=== PATIENT | male | born 1955 | race Caucasian/White ===

== ENCOUNTER 2017-02-21 18:15 | Inpatient (IN) | payer BC ==
[2017-02-21] VITALS (7 sets, daily range): BP systolic 111–136; BP diastolic 61–75; PULSE 74–95; RESP 16–18; TEMP 97.9–99; O2SAT 95–98
[~2017-02-21] VITALS: Ht 180.3 cm; Wt 80.0 kg
[2017-02-21] MEDS ORDERED: OMEGCAP PO (18:42)
[2017-02-21] MEDS ORDERED: SODIUM CHLOR 0.9% 1000 ML INJ 1,000 ML IV SCH (18:53)
[2017-02-21] MEDS ORDERED: ONDANSETRON HCL 4 MG/2 ML VIAL IVP ONE (19:00)
[2017-02-21] MEDS ORDERED: SODIUM CHLORIDE 0.9% FLUSH 10 ML FLUSH IV FLUSH PRN ×2 (19:00→22:00)
[2017-02-21] MEDS ORDERED: MORPHINE SULFATE 4 MG/ML INJ IV PUSH ONE (19:00)
--- NOTE | 2017-02-21 19:01 | PD ---
HPI Chief Complaint: Flank/Kidney Pain Time Seen by Provider: 18:53 Travel History International Travel<30 days: No Contact w/Intl Traveler<30days: No Traveled to known affect area: No History of Present Illness HPI The patient is a 61-year-old male who presents emergency department for abdominal pain. The patient is currently on vacation from [place]. The patient developed periumbilical abdominal pain last night which is progressively worsened. The patient has not had much of an appetite today, he had a few potato chips and a rum [place] Coke on the beach earlier today. Approximate 2 PM the patient's pain worse and is now localized to the right lower quadrant. He does complain of nausea but denies any vomiting. He does complain of mild anorexia. The only previous abdominal surgery was at the age of 7 after an injury to the stomach which she states was "sutured from the inside out ". He denies any history of biliary colic or pancreatitis. He denies any chronic medical problems, daily medications, or allergies to medications. The patient does not have a local primary physician. Symptoms are moderate, worse with palpation, and there are no current alleviating factors. PFSH Past Medical History Medical History: Denies Significant Hx Diminished Hearing: No Tetanus Vaccination: > 5 Years Past Surgical History Narrative Surgical Abdominal surgery at the age of 7 after an injury where he states it was sutured from the inside out. Social History Alcohol Use: Yes (mixed drinks, occasionally; 1 rum/coke today (02/21/17)) Tobacco Use: No (quit 40 years ago) Substance Use: No Allergies-Medications (Allergen,Severity, Reaction): Coded Allergies: No Known Allergies (Unverified , 02/21/17) Reported Meds & Prescriptions Reported Meds & Active Scripts Active Reported [place]-3 Fish Oil/Vitamin (Fish Oil-Cholecalciferol) 1,000-1,000 Mg Cap 1 Cap PO DAILY Review of Systems Except as stated in HPI: all other systems reviewed are Neg General / Constitutional: No: Fever Cardiovascular: No: Chest Pain or Discomfort Respiratory: No: Shortness of Breath Gastrointestinal: Positive: Nausea, Abdominal Pain, No: Vomiting, Diarrhea Genitourinary: No: Dysuria, Hematuria Musculoskeletal: No: Myalgias Skin: No Rash Physical Exam Narrative GENERAL: Awake, alert, pleasant 61-year-old male who appears his stated age and is in no acute respiratory distress. SKIN: Focused skin assessment warm/dry. HEAD: Atraumatic. Normocephalic. EYES: No injection or drainage. ENT: No nasal bleeding or discharge. Mucous membranes pink and moist. NECK: Trachea midline. No JVD. CARDIOVASCULAR: Regular rate and rhythm. No murmur appreciated. RESPIRATORY: No accessory muscle use. Clear to auscultation. Breath sounds equal bilaterally. GASTROINTESTINAL: Abdomen soft, tender to palpation right lower quadrant. Positive McBurney's. Back: No CVA tenderness. MUSCULOSKELETAL: No obvious deformities. No clubbing. No cyanosis. No edema. NEUROLOGICAL: Awake and alert. No obvious cranial nerve deficits. Motor grossly within normal limits. Normal speech. PSYCHIATRIC: Appropriate mood and affect; insight and judgment normal. Data Data Last Documented VS Vital Signs Date Time Temp Pulse Resp B/P Pulse Ox O2 Delivery O2 Flow Rate FiO2 02/21/17 18:23 99.0 88 16 136/75 98 Orders Complete Blood Count With Diff (02/21/17 18:53) Comprehensive Metabolic Panel (02/21/17 18:53) Lipase (02/21/17 18:53) Urinalysis - C+S If Indicated (02/21/17 18:53) Ct Abd/Pel W Iv Contrast(Rout) (02/21/17 18:53) Iv Access Insert/Monitor (02/21/17 18:53) Ecg Monitoring (02/21/17 18:53) Oximetry (02/21/17 18:53) Morphine Inj (Morphine Inj) (02/21/17 19:00) Ondansetron Inj (Zofran Inj) (02/21/17 19:00) Sodium Chlor 0.9% 1000 Ml Inj (Ns 1000 M (02/21/17 18:53) Sodium Chloride 0.9% Flush (Ns Flush) (02/21/17 19:00) MDM Medical Decision Making Medical Screen Exam Complete: Yes Emergency Medical Condition: Yes Medical Record Reviewed: Yes Differential Diagnosis Differential diagnoses includes appendicitis, nephrolithiasis, pyelonephritis, diverticulitis, atypical cholecystitis, enteritis, dehydration. Narrative Course IV was established, labs are drawn and sent, and the patient was placed on cardiac telemetry monitoring and continuous pulse oximetry monitoring. The patient was administered morphine, Zofran, and IV fluids. The patient will be kept nothing by mouth. CT of the abdomen and pelvis was ordered to rule out appendicitis. The patient was signed out to the oncoming physician at 7 PM with labs and CT of the abdomen/pelvis pending. Condition: Stable Kalia Urban MD Feb 21, 2017 19:00
--- NOTE | 2017-02-21 19:07 | PD ---
Physical Exam Date Seen by Provider: Feb 21, 2017 Time Seen by Provider: 19:06 Narrative Accepted in transfer from Dr. Urban GENERAL: Well-developed well-nourished male in no acute distress appears to be in discomfort no respiratory distress GASTROINTESTINAL: Abdomen soft, localized tenderness right lower quadrant with voluntary guarding no rebound, nondistended. Right of umbilicus well healed 7 cm linear scar. Data Data Last Documented VS Vital Signs Date Time Temp Pulse Resp B/P Pulse Ox O2 Delivery O2 Flow Rate FiO2 02/21/17 20:24 92 18 119/64 96 Room Air 02/21/17 20:02 97.9 Orders Complete Blood Count With Diff (02/21/17 18:53) Comprehensive Metabolic Panel (02/21/17 18:53) Lipase (02/21/17 18:53) Urinalysis - C+S If Indicated (02/21/17 18:53) Ct Abd/Pel W Iv Contrast(Rout) (02/21/17 18:53) Iv Access Insert/Monitor (02/21/17 18:53) Ecg Monitoring (02/21/17 18:53) Oximetry (02/21/17 18:53) Morphine Inj (Morphine Inj) (02/21/17 19:00) Ondansetron Inj (Zofran Inj) (02/21/17 19:00) Sodium Chlor 0.9% 1000 Ml Inj (Ns 1000 M (02/21/17 18:53) Sodium Chloride 0.9% Flush (Ns Flush) (02/21/17 19:00) Oral Contrast - Adult (02/21/17 ) Diatrizoate Liq ( Gastroview Liq) (02/21/17 19:26) Iohexol 350 Inj (Omnipaque 350 Inj) (02/21/17 20:50) Piperacil-Tazo 3.375 Gm Premix (Zosyn 3. (02/21/17 21:30) NPO (02/21/17 21:17) Labs Laboratory Tests Test 02/21/17 02/21/17 19:05 20:15 White Blood Count 7.8 TH/MM3 Red Blood Count 4.64 MIL/MM3 Hemoglobin 14.9 GM/DL Hematocrit 44.1 % Mean Corpuscular Volume 94.9 FL Mean Corpuscular Hemoglobin 32.0 PG Mean Corpuscular Hemoglobin 33.7 % Concent Red Cell Distribution Width 12.0 % Platelet Count 161 TH/MM3 Mean Platelet Volume 8.8 FL Neutrophils (%) (Auto) 84.7 % Lymphocytes (%) (Auto) 9.5 % Monocytes (%) (Auto) 5.3 % Eosinophils (%) (Auto) 0.1 % Basophils (%) (Auto) 0.4 % Neutrophils # (Auto) 6.7 TH/MM3 Lymphocytes # (Auto) 0.7 TH/MM3 Monocytes # (Auto) 0.4 TH/MM3 Eosinophils # (Auto) 0.0 TH/MM3 Basophils # (Auto) 0.0 TH/MM3 CBC Comment DIFF FINAL Differential Comment Sodium Level 143 MEQ/L Potassium Level 3.7 MEQ/L Chloride Level 105 MEQ/L Carbon Dioxide Level 26.3 MEQ/L Anion Gap 12 MEQ/L Blood Urea Nitrogen 11 MG/DL Creatinine 1.00 MG/DL Estimat Glomerular Filtration 76 ML/MIN Rate Random Glucose 98 MG/DL Calcium Level 9.1 MG/DL Total Bilirubin 1.1 MG/DL Aspartate Amino Transf 21 U/L (AST/SGOT) Alanine Aminotransferase 31 U/L (ALT/SGPT) Alkaline Phosphatase 60 U/L Total Protein 7.7 GM/DL Albumin 4.0 GM/DL Lipase 97 U/L Urine Color YELLOW Urine Turbidity CLEAR Urine pH 5.5 Urine Specific [place] 1.016 Urine Protein NEG mg/dL Urine Glucose (UA) NEG mg/dL Urine Ketones NEG mg/dL Urine Occult Blood MOD Urine Nitrite NEG Urine Bilirubin NEG Urine Leukocyte Esterase NEG Urine RBC 4-9 /hpf Urine WBC 0-2 /hpf Urine Squamous Epithelial 0-5 /hpf Cells Urine Mucus OCC /lpf Microscopic Urinalysis Comment CULT NOT INDICATED [facility] Medical Record Reviewed: Yes Supervised Visit with MICHAEL: No Interpretation(s) Last Impressions Abdomen/Pelvis CT 02/21/17 8997 Signed Impressions: Service Date/Time: Tuesday, February 21, 2017 20:32 - CONCLUSION: 1. Acute appendicitis with approximately 5 mm appendicolith present. No abscess, obstruction or free air. Trace free fluid in the pelvis. 2. Fatty liver. 3. Nonobstructing 3 mm calculus lower pole left kidney Aaron Lange MD CBC & BMP Diagram 02/21/17 19:05 Vital Signs Date Time Temp Pulse Resp B/P Pulse Ox O2 Delivery O2 Flow Rate FiO2 4/16/17 20:24 92 18 119/64 96 Room Air 02/21/17 20:02 97.9 02/21/17 19:50 18 02/21/17 19:22 84 18 02/21/17 19:22 18 96 Room Air 02/21/17 19:22 82 18 128/73 96 Room Air 02/21/17 18:23 99.0 88 16 136/75 98 Differential Diagnosis Accepted in transfer from Dr. Urban please refer to his dictation Narrative Course Accepted in transfer from Dr. Urban for follow-up of pending labs and imaging and disposition with anticipated diagnosis of appendicitis; patient has just been ordered to receive IV fluid bolus of normal saline, morphine sulfate, and Zofran. @21:[address] abdomen and pelvis with contrast resulted and consistent with acute appendicitis without abscess or perforation identified; patient administered Zosyn and call placed to general surgery. Physician Communication Physician Communication call placed to general surgeon Dr Crenshaw @ 21:[address] Crenshaw --- admit OBS to his service to [facility], npo to Dr Crenshaw --- plan appendectomy 6 am Diagnosis Primary Impression: Acute appendicitis Condition: Stable Pily Sigala MD Feb 21, 2017 19:07
[2017-02-21] MEDS ORDERED: DIATRIZOATE MEGLUM/DIATRIZOATE SOD 9 ML CUP ONE (19:26)
[2017-02-21 20:01] LABS: AUTOMATED NEUTROPHIL # 6.7 TH/MM3 (1.8-7.7); BASOPHIL % 0.4 % (0.0-2.0); EOSINOPHIL % 0.1 % (0.0-4.0); HEMATOCRIT 44.1 % (39.0-51.0); LYMPH % 9.5 % (9.0-44.0); LYMPHOCYTE # 0.7 TH/MM3 (1.0-4.8); MEAN CELL VOLUME 94.9 FL (80.0-100.0); MEAN CORPUSCULAR HGB CONC 33.7 % (32.0-36.0); MONO % 5.3 % (0.0-8.0); NEUT % 84.7 % (16.0-70.0); PLATELET COUNT 161 TH/MM3 (150-450); RED BLOOD COUNT 4.64 MIL/MM3 (4.50-5.90); WHITE BLOOD COUNT 7.8 TH/MM3 (4.0-11.0)
[2017-02-21 20:04] LABS: CHLORIDE 105 MEQ/L (98-107); POTASSIUM 3.7 MEQ/L (3.5-5.1); SODIUM (NA) 143 MEQ/L (136-145)
[2017-02-21 20:05] LABS: HEMO FLAGS DIFF FINAL
[2017-02-21 20:08] LABS: ANION GAP 12 MEQ/L (5-15); BICARBONATE 26.3 MEQ/L (21.0-32.0); BLOOD UREA NITROGEN 11 MG/DL (7-18)
[2017-02-21 20:10] LABS: ALT (GPT) 31 U/L (12-78); AST (GOT) 21 U/L (15-37)
[2017-02-21 20:11] LABS: GLOMERULAR FILTRATION RATE 76 ML/MIN (>89)
[2017-02-21 20:12] LABS: TOTAL BILIRUBIN ADULT 1.1 MG/DL (0.2-1.0)
[2017-02-21 20:13] LABS: ALKALINE PHOSPHATASE 60 U/L (45-117)
[2017-02-21] MEDS ORDERED: IOHEXOL 350 MG/ML 10 ML VIAL (for RAD DIAG) IV ONE (20:50)
[2017-02-21 20:54] LABS: GLUCOSE,URINE NEG (NEG); KETONE, URINE NEG (NEG); NITRITE,URINE NEG (NEG); PH, URINE 5.5 (5.0-8.5)
[2017-02-21 20:57] LABS: BLOOD, URINE MOD (NEG)
[2017-02-21 21:03] LABS: URINE COLOR YELLOW (YELLW/STRAW)
--- NOTE | 2017-02-21 21:03 | RADHPO ---
EXAM DATE/TIME: 02/21/2017 20:32 [place] COMPARISON: No previous studies available for comparison. INDICATIONS : Right lower quadrant and flank pain. IV CONTRAST: 100 cc Omnipaque 350 (iohexol) IV ORAL CONTRAST: Prescribed oral contrast ingested. RADIATION DOSE: 18.16 CTDIvol (mGy) MEDICAL HISTORY : None SURGICAL HISTORY : None. ENCOUNTER: Initial ACUITY: 1 day PAIN SCALE: 6/10 LOCATION: Right lower quadrant TECHNIQUE: Volumetric scanning of the abdomen and pelvis was performed. Using automated exposure control and ad justment of the mA and/or kV according to patient size, radiation dose was kept as low as reasonably achievable to obtain optimal diagnostic quality images. FINDINGS: Lung bases are clear. There is mild fatty liver. Spleen, adrenals, pancreas unremarkable. Nonobstruct ing 3 mm calculus lower pole left kidney. Right kidney unremarkable. In the right lower quadrant the appendix measures about 1 cm in diameter and there is periappendiceal inflammatory changes and an approximately 5 mm appendicolith. Findings are characteristic of acute a ppendicitis. Trace free fluid in the pelvis. No free air. No bowel obstruction. No abscess. CONCLUSION: 1. Acute appendicitis with approximately 5 mm appendicolith present. No abscess, obstruction or free air. Trace free fluid in the pelvis. 2. Fatty liver. 3. Nonobstructing 3 mm calculus lower pole left kidney Aaron Lange MD on February 21, 2017 at 20:56 Board Certified Radiologist. This report was verified electronically.
[2017-02-21 21:04] LABS: MUCUS URINE OCC /lpf (OCC)
[2017-02-21 21:05] LABS: COMMENT (UR) CULT NOT INDICATED; CULTURE IF INDICATED CULT NOT INDICATED; SQUAMOUS EPITHELIAL CELL URINE 0-5 /hpf (0-5); WBC, URINE 0-2 /hpf (0-5)
[2017-02-21] MEDS ORDERED: PIPERACIL-TAZO 3.375 GM PREMIX 50 ML IV ONE (21:30)
[2017-02-21] MEDS ORDERED: SODIUM CHLORIDE 0.9% FLUSH 10 ML FLUSH IVF PRN (21:45)
[2017-02-21] MEDS ORDERED: ONDANSETRON HCL 4 MG/2 ML VIAL IV PRN (22:00)
[2017-02-21] MEDS ORDERED: HYDROmorphone HCL PF 1 MG/ML VIAL IV PRN (22:00)
[2017-02-21] MEDS: D5-1/2 NS + KCL 20 MEQ INJ 1,000 ML IV SCH (22:19)
[2017-02-22 01:00] VITALS: BP 112/58; PULSE 77; RESP 18; TEMP 97; O2SAT 96
[2017-02-22 01:32] VITALS: BP 112/58; PULSE 77; RESP 18; TEMP 97; O2SAT 96
[2017-02-22] MEDS: PIPERACIL-TAZO 3.375 GM PREMIX 50 ML IV SCH ×3 (03:41→17:03)
[2017-02-22 04:00] VITALS: BP_SYST 100; BP_SYST 143; BP_DIAS 60; BP_DIAS 89; PULSE 100; PULSE 70; RESP 20; TEMP 97; TEMP 97.1; O2SAT 97
[2017-02-22] MEDS ORDERED: ACETAMINOPHEN 1000 MG/100 ML VIAL IV ONE (05:02)
[2017-02-22] MEDS ORDERED: DEXAMETHASONE SOD PHOS 4 MG/ML VIAL ONE (05:02)
[2017-02-22] MEDS ORDERED: SUGAMMADEX SODIUM 200 MG/2 ML VIAL IV PUSH ONE ×2 (05:02)
[2017-02-22] MEDS ORDERED: fentaNYL CITRATE 250 MCG/5 ML AMP ONE (05:02)
[2017-02-22] MEDS ORDERED: FAMOTIDINE 20 MG/2 ML VIAL ONE (05:04)
[2017-02-22] MEDS ORDERED: BUPIVACAINE/EPINEPHRINE 0.25% PF 30 ML VIAL ONE (05:08)
--- NOTE | 2017-02-22 05:39 | HHI.HP ---
HPI Service General Surgery Primary Care Physician Non-Staff Admission Diagnosis acute appendicitis Chief Complaint: Abdominal pain History of Present Illness This 61 yo M developed central abdominal pain and discomfort about 36 hrs ago, which worsened and became localized to the RLQ. The pain persisted and he presented to the ED. He has had anorexia and nausea. He had a laparotomy as a child for a penetrating trauma to the abdomen. CT a/p was performed revealing acute appendicitis. Review of Systems Constitutional: DENIES: Fever, Chills Eyes: DENIES: Eye inflammation, Eye pain Respiratory: DENIES: Cough, Wheezing Cardiovascular: DENIES: Chest pain, Palpitations Gastrointestinal: COMPLAINS OF: Abdominal pain, Nausea, Anorexia Integumentary: DENIES: Pruritus, Rash Neurologic: DENIES: Localized weakness, Seizures Past Family Social History Past Medical History None Past Surgical History ex lap for penetrating trauma as a child Reported Medications Reported Meds & Active Scripts Active Reported [place]-3 Fish Oil/Vitamin (Fish Oil-Cholecalciferol) 1,000-1,000 Mg Cap 1 Cap PO DAILY Allergies: Coded Allergies: No Known Allergies (Unverified , 02/21/17) Active Ordered Medications Current Medications Medications (Trade) Dose Ordered Sig/Elizabeth Route Start Time Stop Time Status Last Admin (NS Flush) 2 ml UNSCH PRN IV FLUSH 02/21/17 22:00 02/22/17 03:37 Sodium Chloride 2 ml 2 ml BID IV FLUSH 02/22/17 09:00 (Zosyn 3.375 Gm Premix) 50 ml @ 100 mls/hr Q6H IV 02/22/17 04:00 02/22/17 03:41 (Dilaudid Pf Inj) 1 mg Q3H PRN IV 02/21/17 22:00 02/22/17 03:37 Ondansetron HCl 4 mg 4 mg Q6H PRN IV 02/21/17 22:00 (D5-1/2 NS + KCl 20 Meq Inj) 1,000 ml @ 100 mls/hr Q10H IV 02/21/17 21:46 02/21/17 22:19 Family History noncontributory Social History No tobacco use, occ ETOH. On vacation from [place] with his fiance. Physical Exam Vital Signs Vital Signs Date Time Temp Pulse Resp B/P Pulse Ox O2 Delivery O2 Flow Rate FiO2 02/22/17 04:00 97.1 70 20 100/60 97 02/22/17 01:32 97.0 77 18 112/58 96 02/21/17 23:56 18 96 02/21/17 23:33 74 18 02/21/17 23:33 74 18 111/61 96 Room Air 02/21/17 23:00 95 21 02/21/17 21:37 95 18 02/21/17 21:37 95 18 126/61 96 Room Air 02/21/17 20:24 92 18 119/64 96 Room Air 02/21/17 20:02 97.9 02/21/17 19:50 18 02/21/17 19:22 84 18 02/21/17 19:22 18 96 Room Air 02/21/17 19:22 82 18 128/73 96 Room Air 02/21/17 18:23 99.0 88 16 136/75 98 Physical Exam Gen: NAD Eyes: PERRLA CV: RRR Pulm: nonlabored breathing, CTAB, no wheezing or rhonchi Abd: well healed mini laparotomy in midline. + rebound RLQ, - rovsing's sign, otherwise nontender Ext: no cyanosis or edema Skin: warm, dry, nonjaundiced Laboratory Laboratory Tests Test 02/21/17 02/21/17 19:05 20:15 White Blood Count 7.8 Red Blood Count 4.64 Hemoglobin 14.9 Hematocrit 44.1 Mean Corpuscular Volume 94.9 Mean Corpuscular Hemoglobin 32.0 Mean Corpuscular Hemoglobin 33.7 Concent Red Cell Distribution Width 12.0 Platelet Count 161 Mean Platelet Volume 8.8 Neutrophils (%) (Auto) 84.7 Lymphocytes (%) (Auto) 9.5 Monocytes (%) (Auto) 5.3 Eosinophils (%) (Auto) 0.1 Basophils (%) (Auto) 0.4 Neutrophils # (Auto) 6.7 Lymphocytes # (Auto) 0.7 Monocytes # (Auto) 0.4 Eosinophils # (Auto) 0.0 Basophils # (Auto) 0.0 CBC Comment DIFF FINAL Differential Comment Sodium Level 143 Potassium Level 3.7 Chloride Level 105 Carbon Dioxide Level 26.3 Anion Gap 12 Blood Urea Nitrogen 11 Creatinine 1.00 Estimat Glomerular Filtration 76 Rate Random Glucose 98 Calcium Level 9.1 Total Bilirubin 1.1 Aspartate Amino Transf 21 (AST/SGOT) Alanine Aminotransferase 31 (ALT/SGPT) Alkaline Phosphatase 60 Total Protein 7.7 Albumin 4.0 Lipase 97 Urine Color YELLOW Urine Turbidity CLEAR Urine pH 5.5 Urine Specific [place] 1.016 Urine Protein NEG Urine Glucose (UA) NEG Urine Ketones NEG Urine Occult Blood MOD Urine Nitrite NEG Urine Bilirubin NEG Urine Leukocyte Esterase NEG Urine RBC 4-9 Urine WBC 0-2 Urine Squamous Epithelial 0-5 Cells Urine Mucus OCC Microscopic Urinalysis Comment CULT NOT INDICATED Result Diagram: 02/21/17190402/21/171904 Imaging Last Impressions Abdomen/Pelvis CT 02/21/171852 Signed Impressions: Service Date/Time: Tuesday, February 21, 2017 20:32 - CONCLUSION: 1. Acute appendicitis with approximately 5 mm appendicolith present. No abscess, obstruction or free air. Trace free fluid in the pelvis. 2. Fatty liver. 3. Nonobstructing 3 mm calculus lower pole left kidney Aaron Lange MD Assessment and Plan Assessment and Plan 61 yo M with h/o laparotomy as a child presents with evaluation consistent with acute appendicitis. I recommend to proceed with laparoscopic, possible open, appendectomy. Discussed details, risks, and benefits of appendectomy with the patient and he desires to proceed. Agusto Crenshaw MD Feb 22, 2017 05:39
[2017-02-22] MEDS: D5-1/2 NS + KCL 20 MEQ INJ 1,000 ML IV SCH (06:30)
[2017-02-22] MEDS ORDERED: Post-op Orders (for Pharmacy) MISC XX ONE (06:58)
[2017-02-22] MEDS ORDERED: DO NOT ADM ANY ANTICOAGULANT DRUGS PRN (06:59)
[2017-02-22] MEDS ORDERED: MORPHINE SULFATE 4 MG/ML INJ IV PRN (07:00)
[2017-02-22] MEDS ORDERED: NALOXONE HCL 0.4 MG/ML AMP IV PRN (07:00)
[2017-02-22] MEDS ORDERED: ONDANSETRON HCL 4 MG/2 ML VIAL IV PRN (07:00)
[2017-02-22] MEDS ORDERED: diphenhydrAMINE HCL 25 MG CAP PO PRN (07:00)
[2017-02-22] MEDS ORDERED: ACETAMINOPHEN/HYDROcodone 325 MG/5 MG TAB PO PRN (07:00)
[2017-02-22] MEDS ORDERED: SODIUM CHLORIDE 0.9% FLUSH 10 ML FLUSH IV FLUSH PRN (07:00)
[2017-02-22] MEDS ORDERED: ACETAMINOPHEN/HYDROcodone 325 MG/10 MG TAB PO PRN (07:00)
--- NOTE | 2017-02-22 07:43 | MP ---
cc: TRAM GOMEZ MD DATE OF SURGERY: 02/22/2017 PREOPERATIVE DIAGNOSIS Acute appendicitis. POSTOPERATIVE DIAGNOSIS Acute appendicitis with perforation. SURGERY Laparoscopic appendectomy. SURGEON Tram Gomez [employer] BRY Hansen ANESTHESIA General endotracheal. COMPLICATIONS None apparent. ESTIMATED BLOOD LOSS 10 cc. OPERATIVE FINDINGS The patient had generalized purulent peritonitis. The appendix was inflamed and slightly gangrenous. The abdomen was copiously irrigated with four liters of warm normal saline until there was only clear fluid remaining. PROCEDURE IN DETAIL The patient was taken to the operating room and placed in a supine position. General endotracheal anesthesia was induced. The abdomen was prepped and draped in the usual sterile fashion and a surgical timeout was performed to verify correct patient, procedure and site. In the left lower abdomen a 5 mm incision was made after infiltration with local anesthetic and a 5 mm port placed under direct laparoscopic visualization. The abdomen was insufflated to 15 mmHg with CO2 gas which the patient tolerated well. He was placed in reverse Trendelenburg position and turned to the left. Upon placement of the camera into the abdomen the patient was noted to have generalized purulent peritonitis. He also had adhesions in the midline at the umbilicus of omentum and small bowel from previous laparotomy as a child. The adhesions were not taken down. Next, a 5 mm port was placed just to the right of the midline in the right mid abdomen and a 12 mm port in the suprapubic area. Careful blunt dissection was performed in the right lower quadrant as there were acute adhesions and inflammation between loops of small bowel with some pus in between the loops of bowel. The appendix was carefully dissected free from surrounding inflammatory tissue, was elevated and the mesoappendix taken down with the Harmonic scalpel until the base was clearly seen entering the cecum. At this point two #1 PDS Endoloops were placed at the base of the appendix and it was transected and removed from the abdomen using an EndoCatch bag. The Endoloops were in place with no leakage and there was no bleeding. All quadrants of the abdomen including the pelvis were copiously irrigated with four liters of warm normal saline until the fluid was clear. The purulent fluid was throughout the abdomen prior to irrigation. At this point the trocars were removed and the abdomen allowed to desufflate. The 12 mm fascial incision was closed with 0 Vicryl suture. The skin was closed with subcuticular 4-0 Monocryl and Dermabond. The patient tolerated the procedure well, was extubated and taken to PACU in stable condition. MD JOAN Wilks/FELICIA /7:05 AM /8:26 AM
[2017-02-22] MEDS ORDERED: *ONDANSETRON 4 MG VIAL PERIprocedural Use ONLY ONE (07:46)
[2017-02-22] MEDS ORDERED: SCOPOLAMINE 1.5 MG PATCH ONE (08:27)
[2017-02-22] MEDS ORDERED: *diphenhydrAMINE HCL 50 MG/ML VIAL PERIprocedural Use ONLY ONE (08:30)
[2017-02-22] MEDS: metroNIDAZOLE 500 MG INJ 100 ML IV SCH ×3 (09:00→21:54)
[2017-02-22] MEDS ORDERED: SODIUM CHLORIDE 0.9% FLUSH 10 ML FLUSH IV FLUSH SCH ×2 (09:00)
[2017-02-22] MEDS ORDERED: SCOPOLAMINE 1.5 MG PATCH T-DERMAL ONE (09:00)
[2017-02-22] MEDS ORDERED: diphenhydrAMINE HCL 50 MG/ML VIAL IV ONE (09:00)
[2017-02-22] MEDS: LACTATED RINGER'S 1000 ML INJ 1,000 ML IV SCH ×2 (09:00→21:55)
[2017-02-22] MEDS: SODIUM CHLORIDE 0.9% FLUSH 10 ML FLUSH IV FLUSH SCH ×2 (09:00→21:00)
[2017-02-22] MEDS ORDERED: PROPOFOL 200 MG/20 ML AMP IV ONE (09:51)
[2017-02-22] MEDS ORDERED: ePHEDrine/NS 25 MG/5 ML SYR IV ONE (09:51)
[2017-02-22] MEDS ORDERED: PHENYLEPH/NS 1000 MCG/10 ML SYR IV ONE (09:52)
[2017-02-22] MEDS ORDERED: ONDANSETRON HCL 4 MG/2 ML VIAL IV PUSH ONE (09:52)
[2017-02-22] MEDS: METOCLOPRAMIDE HCL 10 MG/2 ML VIAL IV SCH ×3 (10:45→21:55)
[2017-02-22] MEDS: PANTOPRAZOLE SODIUM 40 MG VIAL IV SCH (10:45)
[2017-02-22] MEDS: LEVOFLOXACIN 750 MG PREMIX INJ 150 ML IV SCH (11:03)
--- NOTE | 2017-02-22 11:25 | EKG ---
Date Performed: 02/22/2017 Time Performed: 04:48:38 PTAGE: 61 years EKG: Sinus rhythm POSSIBLE LEFT ATRIAL ENLARGEMENT RIGHT BUNDLE BRANCH BLOCK LEFT ANTERIOR FASCICULAR BLOCK POSSIBLE S EPTAL MYOCARDIAL INFARCTION ABNORMAL ECG INTERPRETATION BASED ON A DEFAULT AGE OF 39 YEARS NO PREVIOUS TRACING DOCTOR: Phillip Kong Interpretating Date/Time 02/22/2017 11:24:44
[2017-02-22 16:00] VITALS: BP 97/58; PULSE 55; RESP 18; TEMP 96.3; O2SAT 95
[2017-02-22 20:00] VITALS: BP 129/63; PULSE 63; RESP 20; TEMP 96.6; O2SAT 97
[2017-02-22 21:53] VITALS: O2SAT 97
[2017-02-23] VITALS (7 sets, daily range): BP systolic 101–131; BP diastolic 55–64; PULSE 54–60; RESP 16–18; TEMP 95.8–97.5; O2SAT 95–98
[2017-02-23] MEDS: PIPERACIL-TAZO 3.375 GM PREMIX 50 ML IV SCH ×3 (00:08→08:58)
[2017-02-23] MEDS: metroNIDAZOLE 500 MG INJ 100 ML IV SCH ×4 (02:18→20:21)
[2017-02-23] MEDS: METOCLOPRAMIDE HCL 10 MG/2 ML VIAL IV SCH ×4 (02:18→20:21)
[2017-02-23] MEDS: LACTATED RINGER'S 1000 ML INJ 1,000 ML IV SCH ×2 (05:06→15:00)
[2017-02-23 06:27] LABS: AUTOMATED NEUTROPHIL # 7.5 TH/MM3 (1.8-7.7); BASOPHIL % 0.1 % (0.0-2.0); HEMATOCRIT 35.4 % (39.0-51.0); HEMO FLAGS DIFF FINAL; LYMPH % 8.2 % (9.0-44.0); LYMPHOCYTE # 0.7 TH/MM3 (1.0-4.8); MEAN CELL VOLUME 96.1 FL (80.0-100.0); MEAN CORPUSCULAR HEMOGLOBIN 32.4 PG (27.0-34.0); MEAN CORPUSCULAR HGB CONC 33.7 % (32.0-36.0); MONO % 4.5 % (0.0-8.0); NEUT % 87.2 % (16.0-70.0); PLATELET COUNT 110 TH/MM3 (150-450); RED BLOOD COUNT 3.69 MIL/MM3 (4.50-5.90); RED CELL DISTRIBUTION WIDTH 12.7 % (11.6-17.2); WHITE BLOOD COUNT 8.6 TH/MM3 (4.0-11.0)
[2017-02-23] MEDS: PANTOPRAZOLE SODIUM 40 MG VIAL IV SCH (08:58)
[2017-02-23] MEDS: SODIUM CHLORIDE 0.9% FLUSH 10 ML FLUSH IV FLUSH SCH ×2 (08:59→20:21)
[2017-02-23] MEDS ORDERED: LACTATED RINGER'S 1000 ML INJ 1,000 ML IV ONE (10:30)
--- NOTE | 2017-02-23 10:40 | HHI.PR ---
Subjective Subjective Notes Doing well post op. He feels much better. BP a little marginal. Objective Vitals/I&O Vital Signs Date Time Temp Pulse Resp B/P Pulse Ox O2 Delivery O2 Flow Rate FiO2 02/23/17 08:00 97.3 54 18 101/55 97 02/22/17 21:53 21 02/22/17 11:00 Room Air 02/22/17 07:30 2 Labs Laboratory Tests Test 02/23/17 06:05 White Blood Count 8.6 Red Blood Count 3.69 Hemoglobin 11.9 Hematocrit 35.4 Mean Corpuscular Volume 96.1 Mean Corpuscular Hemoglobin 32.4 Mean Corpuscular Hemoglobin 33.7 Concent Red Cell Distribution Width 12.7 Platelet Count 110 Mean Platelet Volume 9.2 Neutrophils (%) (Auto) 87.2 Lymphocytes (%) (Auto) 8.2 Monocytes (%) (Auto) 4.5 Eosinophils (%) (Auto) 0.0 Basophils (%) (Auto) 0.1 Neutrophils # (Auto) 7.5 Lymphocytes # (Auto) 0.7 Monocytes # (Auto) 0.4 Eosinophils # (Auto) 0.0 Basophils # (Auto) 0.0 CBC Comment DIFF FINAL Differential Comment Radiology Last Impressions Abdomen/Pelvis CT 02/21/17 1853 Signed Impressions: Service Date/Time: Tuesday, February 21, 2017 20:32 - CONCLUSION: 1. Acute appendicitis with approximately 5 mm appendicolith present. No abscess, obstruction or free air. Trace free fluid in the pelvis. 2. Fatty liver. 3. Nonobstructing 3 mm calculus lower pole left kidney Aaron Lange MD Narrative Exam NAD mild abd distention, inc c/d/i A/P Assessment and Plan 61 yo M POD 1 s/p lap appy for perforated appendicitis. Pain is well controlled. Mild distention Cont IV antibiotics. Start regular diet Bolus one liter IVF Anticipate d/c home tomorrow. DenAgusto MD Feb 23, 2017 10:40
[2017-02-23] MEDS: LEVOFLOXACIN 750 MG PREMIX INJ 150 ML IV SCH (12:16)
[2017-02-24] VITALS: BP 122/66; PULSE 76; RESP 16; TEMP 97.1; O2SAT 97
[2017-02-24] MEDS: LACTATED RINGER'S 1000 ML INJ 1,000 ML IV SCH ×2 (01:15→11:00)
[2017-02-24] MEDS: METOCLOPRAMIDE HCL 10 MG/2 ML VIAL IV SCH ×2 (02:51→08:49)
[2017-02-24] MEDS: metroNIDAZOLE 500 MG INJ 100 ML IV SCH ×2 (02:52→08:49)
[2017-02-24 08:00] VITALS: BP 113/74; PULSE 60; RESP 17; TEMP 97.7; O2SAT 97
[2017-02-24] MEDS: SODIUM CHLORIDE 0.9% FLUSH 10 ML FLUSH IV FLUSH SCH (08:49)
[2017-02-24] MEDS: PANTOPRAZOLE SODIUM 40 MG VIAL IV SCH (08:49)
[2017-02-24] MEDS: LEVOFLOXACIN 750 MG PREMIX INJ 150 ML IV SCH (11:00)
[2017-02-24] MEDS ORDERED: HYDR-3516 PO (11:09)
[2017-02-24] MEDS ORDERED: METR-1 PO (11:09)
[2017-02-24] MEDS ORDERED: CIPR-9 PO (11:09)
--- NOTE | 2017-02-24 11:11 | HHI.DS ---
Discharge Summary Admission Date Feb 22, 2017 at 07:01 Discharge Date: Feb 24, 2017 Admitting Diagnosis acute appendicitis Procedures Lap appendectomy Brief History This 61 yo M developed central abdominal pain and discomfort about 36 hrs ago, which worsened and became localized to the RLQ. The pain persisted and he presented to the ED. He has had anorexia and nausea. He had a laparotomy as a child for a penetrating trauma to the abdomen. CT a/p was performed revealing acute appendicitis. CBC/BMP: 02/23/17 0605 02/21/17 1905 Significant Findings Laboratory Tests Test 02/21/17 02/21/17 02/23/17 19:05 20:15 06:05 Neutrophils (%) (Auto) 84.7 % 87.2 % (16.0-70.0) (16.0-70.0) Lymphocytes # (Auto) 0.7 TH/MM3 0.7 TH/MM3 (1.0-4.8) (1.0-4.8) Estimat Glomerular Filtration 76 ML/MIN (>89) Rate Total Bilirubin 1.1 MG/DL (0.2-1.0) Urine Occult Blood MOD (NEG) Urine RBC 4-9 /hpf (0-3) Red Blood Count 3.69 MIL/MM3 (4.50-5.90) Hemoglobin 11.9 GM/DL (13.0-17.0) Hematocrit 35.4 % (39.0-51.0) Platelet Count 110 TH/MM3 (150-450) Lymphocytes (%) (Auto) 8.2 % (9.0-44.0) PE at Discharge NAD mild abd distention, inc c/d/i Hospital Course He underwent the above procedure for perforated appendicitis. He did very well post op, with minimal pain and no nausea. He had clears POD 1 and reg diet afterwards, tolerating well. He was discharged. [place] is from out of [place] and will see me Wednesday before he goes back to [place]. Pt Condition on Discharge: Good Discharge Disposition: Discharge Home Discharge Instructions DIET: Follow Instructions for: As Tolerated, No Restrictions, Low Fat Diet Activities you can perform: See Additionl Instruction Other Activity Instructions: Ok to shower. No heavy lifting. No driving while on narcotics. Follow up Referrals: [facility] - 03/01/17 with Den,Agusto MERRILL New Medications: Ciprofloxacin (Cipro) 500 Mg Tab 500 MG PO BID Infection #14 Ref 0 TAB Metronidazole (Flagyl) 500 Mg Tab 500 MG PO TID Infection #21 Ref 0 TAB Hydrocodone-Acetaminophen (Hydrocodone-Acetaminophen) 5-325 mg Tab 1-2 TAB PO Q4H PRN PAIN #30 TAB Continued Medications: Fish Oil-Cholecalciferol ([place]-3 Fish Oil/Vitamin) 1,000-1,000 Mg Cap 1 CAP PO DAILY Nutritional Supplement Ref 0 CAP Agusto Crenshaw MD Feb 24, 2017 11:11
[2017-02-24 12:29] VITALS: O2SAT 97
== END 2017-02-24 12:45 | disposition home or self-care (01) | DRG 340 ==
LOC: PHED 18:15 → PHEDA 21:36 → NEPFCDU 02-22 00:12 → OBSVTOIN 02-22 07:01 → N07B 02-22 10:13 → N07A 02-22 14:45 → N07B 02-22 14:46
PROVIDERS: ADMIT Surgery; ATTEND Surgery
PROC: 0DTJ4ZZ Resection of Appendix, Percutaneous Endoscopic Approach (ICD-10-PCS; principal; 2017-02-22 05:31)
DX: K35.2 Acute appendicitis with generalized peritonitis (principal); K76.0 Fatty (change of) liver, not elsewhere classified; N20.0 Calculus of kidney
CPT/HCPCS: 74177; 80053; 81001; 83690; 85025; 88304; 93005; 96361; 96374; 96375; C9113; G0378; J0131; J1100; J1170; J1200; J1956; J2270; J2370; J2405; J2543; J2765; J3010; J3480; J7030; J7120; Q9963; Q9967